=== PATIENT | male | born 1970 | race Caucasian/White ===

== ENCOUNTER 2023-02-13 15:53 | Inpatient (IN) | payer OTHER ==
[~2023-02-13] VITALS: Ht 167.6 cm; Wt 78.0 kg
[2023-02-13 15:56] VITALS: O2SAT 100
[2023-02-13] MEDS ORDERED: LORAZEPAM 2MG/ML CPJ IV ONE (16:45)
[2023-02-13] MEDS ORDERED: LEVETIRACETAM 500MG PREMIX 100 ML IV ONE (16:45)
[2023-02-13] MEDS ORDERED: KETOROLAC 15MG/ML VIAL IV ONE (17:00)
[2023-02-13] MEDS ORDERED: SODIUM CHLORIDE 0.9% 1,000 ML IV ONE (17:00)
[2023-02-13 17:19] LABS: HEMATOCRIT. 37.8 % (42.0-52.0); HEMOGLOBIN. 13.1 g/dL (14.0-18.0); MEAN CORPUSCULAR HEMOGLOBIN 34.5 pg (28.0-32.0); MEAN CORPUSCULAR VOLUME 99.3 fL (80.0-94.0); MEAN PLATELET VOLUME 9.9 fl (7.4-10.4); PLATELET 103 x1000/uL (130-400); RED CELL DISTRIBUTION WIDTH 12.9 % (11.6-14.6)
[2023-02-13 17:29] LABS: CHLORIDE 90 mEq/L (98-107)
[2023-02-13 17:30] LABS: *AMPHETAMINES SCREEN URINE NEGATIVE (NEGATIVE); *BARBITURATES SCREEN URINE NEGATIVE (NEGATIVE); *BENZODIAZEPINES SCREEN URINE NEGATIVE (NEGATIVE); *COCAINE SCREEN URINE NEGATIVE (NEGATIVE); CANNABINOID URINE SCREEN NEGATIVE (NEGATIVE); METHADONE URINE SCREEN NEGATIVE (NEGATIVE); OPIATES URINE SCREEN NEGATIVE (NEGATIVE); PHENCYCLIDINE URINE SCREEN NEGATIVE (NEGATIVE)
[2023-02-13 17:37] LABS: ETHANOL BLOOD < 10 mg/dL (-10)
[2023-02-13 17:47] LABS: PLATELET ESTIMATE DECREASED
[2023-02-13] MEDS ORDERED: LORAZEPAM 2MG/ML CPJ IV NR (18:15)
[2023-02-13] MEDS ORDERED: POTASSIUM CHLORIDE 20MEQ TABLET SR PO NR (18:30)
[2023-02-13] MEDS ORDERED: KCL 20MEQ/100ML PREMIX 100 ML IV ONE (18:45)
[2023-02-13 21:00] VITALS: BP 137/83; PULSE 88; RESP 20; TEMP 97.9
[2023-02-13 21:30] VITALS: BP 137/83; PULSE 88; RESP 20; TEMP 97.9
[2023-02-13] MEDS ORDERED: LORAZEPAM 2MG/ML CPJ IV PRN (22:30)
[2023-02-13] MEDS: ACETAMINOPHEN 325MG TABLET PO PRN (22:57)
[2023-02-14 05:24] LABS: BASOPHILS % 2.5 % (0.0-2.0); EOSINOPHILS % 0.1 % (0.0-5.0); HEMATOCRIT. 33.8 % (42.0-52.0); MEAN CORPUSCULAR HEMOGLOBIN 34.8 pg (28.0-32.0); MEAN CORPUSCULAR VOLUME 98.3 fL (80.0-94.0); MEAN PLATELET VOLUME 10.4 fl (7.4-10.4); MONOCYTES % 12.2 % (2.0-8.0); NEUTROPHILS % 66.2 % (40.0-76.0); PLATELET 83 x1000/uL (130-400); RED BLOOD CELL COUNT 3.44 mill/uL (4.7-6.1); RED CELL DISTRIBUTION WIDTH 12.8 % (11.6-14.6)
[2023-02-14 06:00] VITALS: BP 135/69; PULSE 82; RESP 18; TEMP 98.2
[2023-02-14 06:16] LABS: HEPATITIS B SURFACE ANTIGEN NEGATIVE
[2023-02-14 08:00] VITALS: BP 121/77; PULSE 81; RESP 20; TEMP 98.9
[2023-02-14] MEDS ORDERED: LEVETIRACETAM 500MG TABLET PO SCH (09:00)
[2023-02-14 12:00] VITALS: BP 101/70; PULSE 87; RESP 20; TEMP 98.7
[2023-02-14 16:00] VITALS: BP 108/68; PULSE 92; RESP 20; TEMP 98.6
[2023-02-14 20:00] VITALS: BP 113/72; PULSE 85; RESP 18; TEMP 97.8
[2023-02-14 21:20] LABS: CHLORIDE 93 mEq/L (98-107)
[2023-02-14] MEDS: LEVETIRACETAM 500MG TABLET PO SCH (21:31)
[2023-02-14] MEDS ORDERED: LORAZEPAM 0.5MG TABLET PO PRN (22:15)
[2023-02-14] MEDS ORDERED: FOLIC ACID 1 MG, THIAMINE HCL 100 MG, MVI, ADULT NO.1 10 ML in DEXTROSE 5% WATER 1,000 ML IV ONE ×4 (23:30)
[2023-02-15] VITALS: BP 125/89; PULSE 78; RESP 18; TEMP 97.5
[2023-02-15 04:00] VITALS: BP 115/78; PULSE 72; RESP 20; TEMP 97.3
[2023-02-15] MEDS ORDERED: POTASSIUM CHLORIDE 20MEQ TABLET SR PO NR (07:30)
[2023-02-15] MEDS: LEVETIRACETAM 500MG TABLET PO SCH ×2 (07:51→21:32)
[2023-02-15 08:00] VITALS: BP 126/57; PULSE 85; RESP 18; TEMP 98.9
[2023-02-15 12:00] VITALS: BP 111/90; PULSE 107; RESP 20; TEMP 98.4
[2023-02-15] MEDS: CHLORDIAZEPOXIDE 25MG CAPSULE PO SCH ×2 (13:58→21:32)
[2023-02-15] MEDS: FOLIC ACID 1MG TABLET PO SCH (13:58)
[2023-02-15] MEDS: THIAMINE HCL 100MG TABLET PO SCH (13:58)
[2023-02-15 16:00] VITALS: BP 125/86; PULSE 95; RESP 20; TEMP 98.7
[2023-02-15 20:00] VITALS: BP 114/66; PULSE 88; RESP 18; TEMP 97
[2023-02-16] VITALS: BP 131/59; PULSE 89; RESP 18; TEMP 98
[2023-02-16 04:00] VITALS: BP 124/69; PULSE 78; RESP 18; TEMP 97.5
[2023-02-16] MEDS: CHLORDIAZEPOXIDE 25MG CAPSULE PO SCH ×2 (06:06→13:33)
[2023-02-16 08:00] VITALS: BP 145/92; PULSE 82; RESP 18; TEMP 97.6
[2023-02-16] MEDS: LEVETIRACETAM 500MG TABLET PO SCH ×2 (08:14→23:46)
[2023-02-16] MEDS: THIAMINE HCL 100MG TABLET PO SCH (08:14)
[2023-02-16] MEDS: FOLIC ACID 1MG TABLET PO SCH (08:14)
[2023-02-16 12:00] VITALS: BP 105/76; PULSE 89; RESP 18; TEMP 98.2
[2023-02-16 16:00] VITALS: BP 105/68; PULSE 97; RESP 18; TEMP 99.1
[2023-02-16 20:00] VITALS: BP 138/94; PULSE 88; RESP 20; TEMP 99.3
[2023-02-17] VITALS: BP 119/63; PULSE 98; RESP 17; TEMP 99.1
[2023-02-17] MEDS: ACETAMINOPHEN 325MG TABLET PO PRN ×2 (01:31→19:12)
[2023-02-17 04:00] VITALS: BP 104/72; PULSE 99; RESP 16; TEMP 99
[2023-02-17 08:00] VITALS: BP 119/83; PULSE 100; RESP 18; TEMP 97.2
[2023-02-17] MEDS: LEVETIRACETAM 500MG TABLET PO SCH ×2 (08:27→20:53)
[2023-02-17] MEDS: FOLIC ACID 1MG TABLET PO SCH (08:27)
[2023-02-17] MEDS: THIAMINE HCL 100MG TABLET PO SCH (08:27)
[2023-02-17 12:00] VITALS: BP 122/80; PULSE 100; RESP 18; TEMP 96.8
[2023-02-17 16:00] VITALS: BP 119/78; PULSE 100; RESP 18; TEMP 97.2
[2023-02-17 18:32] LABS: VITAMIN B12 SERUM 520 pg/mL (211-911)
[2023-02-17 20:00] VITALS: BP 121/81; PULSE 88; RESP 18; TEMP 101.5
[2023-02-18] VITALS (7 sets, daily range): BP systolic 88–129; BP diastolic 55–85; PULSE 88–109; RESP 18–20; TEMP 97.7–100.4
[2023-02-18] MEDS: ACETAMINOPHEN 325MG TABLET PO PRN ×2 (04:37→14:13)
[2023-02-18] MEDS: THIAMINE HCL 100MG TABLET PO SCH (08:46)
[2023-02-18] MEDS: FOLIC ACID 1MG TABLET PO SCH (08:46)
[2023-02-18] MEDS: LEVETIRACETAM 500MG TABLET PO SCH ×2 (08:46→20:53)
[2023-02-19] VITALS (7 sets, daily range): BP systolic 97–116; BP diastolic 56–82; PULSE 85–105; RESP 18–20; TEMP 97.3–100.8
[2023-02-19 04:10] LABS: HIV SCREEN 4G Non Reactive (Non Reactive)
[2023-02-19] MEDS ORDERED: HYDROCODONE/ACETAMINOPHEN 10/325MG TABLET PO PRN (04:45)
[2023-02-19] MEDS: ACETAMINOPHEN 325MG TABLET PO PRN ×2 (04:56→18:56)
[2023-02-19] MEDS: THIAMINE HCL 100MG TABLET PO SCH (09:00)
[2023-02-19] MEDS: FOLIC ACID 1MG TABLET PO SCH (09:29)
[2023-02-19] MEDS: LEVETIRACETAM 500MG TABLET PO SCH ×2 (09:29→20:36)
[2023-02-19] MEDS: COLCHICINE 0.6MG TABLET PO SCH (18:56)
[2023-02-20] VITALS: BP 106/72; PULSE 75; RESP 20; TEMP 100.8
[2023-02-20 04:00] VITALS: BP 127/82; PULSE 95; RESP 18; TEMP 99.5
[2023-02-20 08:00] VITALS: BP 115/69; PULSE 87; RESP 18; TEMP 100.9
[2023-02-20] MEDS: THIAMINE HCL 100MG TABLET PO SCH (08:40)
[2023-02-20] MEDS: COLCHICINE 0.6MG TABLET PO SCH (08:40)
[2023-02-20] MEDS: LEVETIRACETAM 500MG TABLET PO SCH ×2 (08:40→22:25)
[2023-02-20] MEDS: FOLIC ACID 1MG TABLET PO SCH (08:41)
[2023-02-20] MEDS: ACETAMINOPHEN 325MG TABLET PO PRN ×2 (08:58→18:21)
[2023-02-20 12:00] VITALS: BP 116/84; PULSE 79; RESP 18; TEMP 98.4
[2023-02-20 16:00] VITALS: BP 133/91; PULSE 74; RESP 19; TEMP 97.7
[2023-02-20 20:00] VITALS: BP 118/86; PULSE 83; RESP 19; TEMP 97.5
[2023-02-21] VITALS: BP 107/67; PULSE 85; RESP 18; TEMP 100
[2023-02-21 04:00] VITALS: PULSE 86; RESP 18; TEMP 100.6
[2023-02-21 08:00] VITALS: BP 123/82; PULSE 78; RESP 18; TEMP 98.6
[2023-02-21] MEDS: FOLIC ACID 1MG TABLET PO SCH (09:01)
[2023-02-21] MEDS: THIAMINE HCL 100MG TABLET PO SCH (09:04)
[2023-02-21] MEDS: LEVETIRACETAM 500MG TABLET PO SCH ×2 (09:04→21:19)
[2023-02-21] MEDS: COLCHICINE 0.6MG TABLET PO SCH (09:04)
[2023-02-21] MEDS: ACETAMINOPHEN 325MG TABLET PO PRN (09:05)
[2023-02-21 12:00] VITALS: BP 120/70; PULSE 70; RESP 16; TEMP 98.3
[2023-02-21] MEDS: KETOROLAC 30MG/ML VIAL IV PRN ×2 (14:09→21:20)
[2023-02-21 16:00] VITALS: BP 130/72; PULSE 80; RESP 19; TEMP 96.7
[2023-02-21 16:36] LABS: HEMATOCRIT. 31.7 % (42.0-52.0); HEMOGLOBIN. 10.7 g/dL (14.0-18.0); MEAN CORPUSCULAR HEMOGLOBIN 34.3 pg (28.0-32.0); MEAN CORPUSCULAR VOLUME 101.4 fL (80.0-94.0); MEAN PLATELET VOLUME 10.4 fl (7.4-10.4); PLATELET 340 x1000/uL (130-400); RED BLOOD CELL COUNT 3.13 mill/uL (4.7-6.1); RED CELL DISTRIBUTION WIDTH 12.4 % (11.6-14.6)
[2023-02-21 16:40] LABS: CHLORIDE 95 mEq/L (98-107)
[2023-02-21] MEDS: BLOOD SUGAR DIAGNOSTIC STRIP TEST SCH ×2 (17:20→21:27)
[2023-02-21] MEDS ORDERED: DEXTROSE 50% WATER 50ML SYRINGE IV PRN (17:30)
[2023-02-21] MEDS: INSULIN LISPRO 100 UNITS/ML SUBCUT SCH ×2 (17:48→21:21)
[2023-02-21 18:03] LABS: PLATELET ESTIMATE NORMAL
[2023-02-21 20:00] VITALS: BP 102/71; PULSE 84; RESP 19; TEMP 98.6
[2023-02-22] VITALS: BP 108/77; PULSE 80; RESP 18; TEMP 98.8
[2023-02-22 04:00] VITALS: BP 103/72; PULSE 78; RESP 19; TEMP 98.6
[2023-02-22] MEDS: BLOOD SUGAR DIAGNOSTIC STRIP TEST SCH ×2 (06:46→12:20)
[2023-02-22] MEDS: INSULIN LISPRO 100 UNITS/ML SUBCUT SCH ×2 (07:50→12:50)
[2023-02-22 08:00] VITALS: BP 104/78; PULSE 65; RESP 17; TEMP 97.7
[2023-02-22] MEDS: LEVETIRACETAM 500MG TABLET PO SCH (09:36)
[2023-02-22] MEDS: COLCHICINE 0.6MG TABLET PO SCH (09:36)
[2023-02-22] MEDS: THIAMINE HCL 100MG TABLET PO SCH (09:36)
[2023-02-22] MEDS: FOLIC ACID 1MG TABLET PO SCH (09:36)
[2023-02-22] MEDS: ACETAMINOPHEN 325MG TABLET PO PRN (09:46)
[2023-02-22 12:00] VITALS: BP 104/73; PULSE 86; RESP 18; TEMP 98.4
== END 2023-02-22 17:58 | DRG 53 ==
LOC: ER 15:53 → EDBEDREQSVC 18:29 → EDBEDREQ 18:29 → EDBEDREQTM 18:29 → 7WST 18:32 → EDBEDREQ 18:35 → 6EST 02-19 20:52
PROVIDERS: ADMIT Internal Medicine; ATTEND Internal Medicine
PROC: 5A09357 Assistance with Respiratory Ventilation, Less than 24 Consecutive Hours, Continuous Positive Airway Pressure (ICD-10-PCS; principal; 2023-02-14)
PROC: 4A10X4Z Monitoring of Central Nervous Electrical Activity, External Approach (ICD-10-PCS; 2023-02-15)
DX: G40.909 Epilepsy, unspecified, not intractable, without status epilepticus (principal); G92.8 Other toxic encephalopathy; E87.1 Hypo-osmolality and hyponatremia; D64.9 Anemia, unspecified; E87.6 Hypokalemia; F10.939 Alcohol use, unspecified with withdrawal, unspecified; Z59.00 Homelessness unspecified; R74.01 Elevation of levels of liver transaminase levels
CPT/HCPCS: 36415; 70551; 71045; 80048; 80053; 80076; 80305; 80320; 82140; 82607; 82962; 83036; 84443; 84484; 84550; 85025; 86803; 87340; 87389; 93005; 93970; 95816; 97116; 97162; 97530; 99285; C1893; J1815; J1885; J1953; J2060; J3411; J3480; J3490; J7030; J7070; G0480